=== PATIENT | female | born 1980 | race Caucasian/White ===

== ENCOUNTER 2018-11-19 00:23 | Emergency (ER) | payer OTHER ==
[2018-11-19 00:58] VITALS: BP 122/77; RESP 18; O2SAT 100
--- NOTE | 2018-11-19 01:09 | ED PDOC ---
HPI: General Adult Time Seen by Provider: 11/19/18 01:07 Chief Complaint (Nursing): ENT Problem Chief Complaint (Provider): dizziness History Per: Patient (38 y/o female recently started amoxicillin for left ear infection 4 days ago here for dizziness noted with sitting up from bed. States room spinning at that time. Now feels it has mostly resolved.) Past Medical History Reviewed: Historical Data, Nursing Documentation, Vital Signs Vital Signs: Last Vital Signs Temp 98.2 F 11/19/18 00:56 Pulse 88 11/19/18 00:56 Resp 18 11/19/18 00:56 BP 122/77 11/19/18 00:56 Pulse Ox 100 11/19/18 00:56 - Family History Family History: States: Unknown Family Hx - Home Medications Home Medications: Ambulatory Orders Medication Instructions Recorded Meclizine HCl [Antivert] 25 mg PO TID #15 tablet 05/09/16 Meclizine [Antivert] 1 - 2 tab PO Q6 PRN #24 tab 11/19/18 - Allergies Allergies/Adverse Reactions: Allergies Allergy/AdvReac Type Severity Reaction Status Date / Time No Known Allergies Allergy Verified 05/09/16 13:38 Review of Systems ROS Statement: Except As Marked, All Systems Reviewed And Found Negative Physical Exam - Reviewed Nursing Documentation Reviewed: Yes Vital Signs Reviewed: Yes - Physical Exam Appears: Positive for: Well, Non-toxic, No Acute Distress Head Exam: Positive for: ATRAUMATIC, NORMAL INSPECTION, NORMOCEPHALIC Skin: Positive for: Normal Color, Warm, DRY Eye Exam: Positive for: EOMI, Normal appearance, PERRL ENT: Negative for: Normal ENT Inspection (Bilateral TM decreased cone of light. Left TM wnl but small region of dried blood long a papular lesion on left ear canal.) Neck: Positive for: Normal, Painless ROM Cardiovascular/Chest: Positive for: Regular Rate, Rhythm Respiratory: Positive for: CNT, Normal Breath Sounds Gastrointestinal/Abdominal: Positive for: Normal Exam, Soft Back: Positive for: Normal Inspection Extremity: Positive for: Normal ROM Neurologic/Psych: Positive for: Alert, Oriented - ECG O2 Sat by Pulse Oximetry: 100 - Progress ED Course And Treament: Antivert 25 mg x 1 dose Disposition - Clinical Impression Clinical Impression: Vertigo, Lesion of external ear canal - Patient ED Disposition Is Patient to be Admitted: No - Disposition Referrals: Teo Espino MD [Staff Provider] - Disposition: Routine/Home Disposition Time: 01:09 Condition: FAIR Prescriptions: Meclizine [Antivert] 1 - 2 tab PO Q6 PRN #24 tab PRN Reason: Dizziness Instructions: Vertigo (a Type of Dizziness) Forms: [facility] ED School/Work Excuse Print Language: CZECH
[2018-11-19 02:27] VITALS: PULSE 84; TEMP 98
== END 2018-11-19 01:35 | disposition home or self-care (01) ==
LOC: H.ER 00:23
DX: R42 Dizziness and giddiness (principal); H66.92 Otitis media, unspecified, left ear